=== PATIENT | female | born 1985 | race Caucasian/White ===

== ENCOUNTER 2017-02-09 12:29 | Emergency (ER) | payer BC, OTHER ==
[~2017-02-09] VITALS: Ht 167.6 cm; Wt 66.7 kg
[2017-02-09 12:30] VITALS: BP 112/69
[2017-02-09] MEDS ORDERED: TIZANIDINE HCL4 MG PO (12:50)
[2017-02-09] MEDS ORDERED: IBUPROFEN 600600 M1 PO (12:50)
== END 2017-02-09 13:16 | disposition home or self-care (01) ==
LOC: ER 12:29
DX: S39.012A Strain of muscle, fascia and tendon of lower back, initial encounter (principal); Z98.890 Other specified postprocedural states; V43.52XA Car driver injured in collision with other type car in traffic accident, initial encounter; Y93.89 Activity, other specified; Y92.89 Other specified places as the place of occurrence of the external cause; Y99.8 Other external cause status